=== PATIENT | female | born 1975 | race African-American/Black ===

== ENCOUNTER 2024-04-08 12:10 | Emergency (ER) | payer OTHER ==
[~2024-04-08] VITALS: Ht 167.6 cm; Wt 91.0 kg
[2024-04-08 12:19] VITALS: O2SAT 98
[2024-04-08 16:16] LABS: BASOPHILS % 0.7 % (0.0-2.0); EOSINOPHILS % 1.5 % (0.0-5.0); HEMATOCRIT. 41.8 % (36.0-48.0); HEMOGLOBIN. 13.4 g/dL (12.0-16.0); LYMPHOCYTES % 18.2 % (20.0-50.0); MEAN CORPUSCULAR HEMOGLOBIN 29.5 pg (28.0-32.0); MEAN CORPUSCULAR VOLUME 92.2 fL (81.0-99.0); MEAN PLATELET VOLUME 7.6 fl (7.4-10.4); MONOCYTES % 6.1 % (2.0-8.0); NEUTROPHILS % 73.5 % (40.0-76.0); PLATELET 530 x1000/uL (130-400); RED BLOOD CELL COUNT 4.53 mill/uL (4.2-5.4); RED CELL DISTRIBUTION WIDTH 14.5 % (11.6-14.6)
[2024-04-08 16:21] LABS: CHLORIDE 106 mEq/L (98-107); POTASSIUM 3.7 mEq/L (3.5-5.1); SODIUM 138 mEq/L (136-145)
[2024-04-08 16:22] LABS: CALCIUM 9.9 mg/dL (8.7-10.4); CARBON DIOXIDE 22 mEq/L (21-32)
[2024-04-08 16:25] LABS: HCG SCREEN NEGATIVE
[2024-04-08 16:27] LABS: GLUCOSE 105 mg/dL (70-105); UREA NITROGEN BLOOD 31 mg/dL (9-23)
[2024-04-08 16:29] LABS: ALANINE AMINOTRANSFERASE 18 IU/L (10-49); ALBUMIN 4.5 g/dL (3.2-4.8); ASPARTATE AMINOTRANSFERASE 14 IU/L (<34); BILIRUBIN TOTAL 0.4 mg/dL (0.1-1.0); PROTEIN TOTAL 8.7 g/dL (6.0-8.3)
[2024-04-08 17:31] LABS: TROPONIN I HIGH SENSITIVITY 10 ng/L (3.0-34)
[2024-04-08 18:47] LABS: CLARITY URINE CLOUDY (CLEAR); COLOR URINE YELLOW (YELLOW); GLUCOSE URINE NEGATIVE (NEGATIVE); KETONES URINE NEGATIVE (NEGATIVE); LEUKOCYTE ESTERASE URINE TRACE (NEGATIVE); NITRITE URINE NEGATIVE (NEGATIVE); OCCULT BLOOD URINE NEGATIVE (NEGATIVE); PH URINE 5.5 (4.5-8.0); PROTEIN URINE 1+ (NEGATIVE); SPECIFIC GRAVITY URINE 1.025 (1.005-1.030); UROBILINOGEN URINE 0.2 E.U./dL (0.2-1.0)
[2024-04-08 19:06] LABS: BACTERIA URINE 1+; RBC URINE 0-2 /hpf (0-2); SQUAMOUS EPITHELIAL CELL URINE 1+ /lpf (RARE/1+); WBC URINE 0-2 /hpf (0-2)
[2024-04-08 19:09] LABS: *AMPHETAMINES SCREEN URINE NEGATIVE (NEGATIVE); *BARBITURATES SCREEN URINE NEGATIVE (NEGATIVE); *BENZODIAZEPINES SCREEN URINE NEGATIVE (NEGATIVE); *COCAINE SCREEN URINE NEGATIVE (NEGATIVE)
[2024-04-08 19:10] LABS: CANNABINOID URINE SCREEN NEGATIVE (NEGATIVE); ECSTASY MDMA SCREEN URINE NEGATIVE (NEGATIVE); METHADONE URINE SCREEN NEGATIVE (NEGATIVE); OPIATES URINE SCREEN NEGATIVE (NEGATIVE); PHENCYCLIDINE URINE SCREEN NEGATIVE (NEGATIVE)
[2024-04-08 20:21] VITALS: TEMP 36.55848
[2024-04-08] MEDS: ACETAMINOPHEN 325MG TABLET PO ONE (20:25)
[2024-04-08] MEDS: ASPIRIN 81MG TABLET PO ONE (20:25)
[2024-04-08 20:48] LABS: TROPONIN I HIGH SENSITIVITY 10 ng/L (3.0-34)
[2024-04-08] MEDS ORDERED: IBUP-2029 MT (21:17)
[2024-04-08 23:00] VITALS: BP 153/87; PULSE 96; RESP 21; O2SAT 97
[2024-04-09] MEDS ORDERED: IOHEXOL-350 100 ML BOTTLE ONE (07:42)
[2024-04-11] MEDS ORDERED: LOSA100T33 MT (15:41)
== END 2024-04-08 23:11 | disposition home or self-care (01) ==
LOC: ER 13:01
DX: R07.89 Other chest pain (principal); E11.9 Type 2 diabetes mellitus without complications; I10 Essential (primary) hypertension
CPT/HCPCS: 80053; 80305; 81003; 81025; 84703; 83880; 83690; 85025; 84484; 36415; 71045; 93970; 93005; 99285; Q9967; Z7610 ×3

== ENCOUNTER 2025-03-19 07:25 | Inpatient (IN) | payer MEDICAID ==
[~2025-03-19] VITALS: Ht 167.6 cm; Wt 135.9 kg
[~2025-03-19 07:25] MED LIST: FURO40TA5 PO; METO25TA6 PO; NIFE-32 PO
[2025-03-19 08:25] LABS: BASOPHILS % 1.3 % (0.0-2.0); EOSINOPHILS % 3.7 % (0.0-5.0); HEMATOCRIT. 34.1 % (36.0-48.0); HEMOGLOBIN. 11.4 g/dL (12.0-16.0); LYMPHOCYTES % 19.5 % (20.0-50.0); MEAN PLATELET VOLUME 8.2 fl (7.4-10.4); MONOCYTES % 8.3 % (2.0-8.0); NEUTROPHILS % 67.2 % (40.0-76.0); PLATELET 343 x1000/uL (130-400); RED BLOOD CELL COUNT 3.79 mill/uL (4.2-5.4); RED CELL DISTRIBUTION WIDTH 15.1 % (11.6-14.6)
[2025-03-19] MEDS: MORPHINE SULFATE 4 MG/ML INJ (FOR IV/IM USE) IV ONE (08:34)
[2025-03-19 08:35] LABS: CREATININE 1.4 mg/dL (0.6-1.0); UREA NITROGEN BLOOD 17 mg/dL (9-23)
[2025-03-19 08:36] LABS: TROPONIN I HIGH SENSITIVITY 10 ng/L (3.0-34)
[2025-03-19] MEDS: HYDRALAZINE 20MG/ML VIAL IV NR (10:27)
[2025-03-19] MEDS: KETOROLAC 30MG/ML VIAL IV NR (10:28)
[2025-03-19] MEDS ORDERED: LORAZEPAM 0.5MG TABLET PO PRN (10:45)
[2025-03-19] MEDS ORDERED: ACETAMINOPHEN 325MG TABLET PO PRN (10:45)
[2025-03-19] MEDS ORDERED: DOCUSATE SODIUM 100MG CAPSULE PO PRN (10:45)
[2025-03-19 10:53] LABS: TROPONIN I HIGH SENSITIVITY 9 ng/L (3.0-34)
[2025-03-19] MEDS ORDERED: NALOXONE HCL 0.4MG/ML VIAL IV PRN (11:00)
[2025-03-19] MEDS ORDERED: KETOROLAC 15MG/ML VIAL IV PRN (11:15)
[2025-03-19] MEDS: CLONIDINE 0.1MG TABLET PO PRN (11:49)
[2025-03-19] MEDS: BLOOD SUGAR DIAGNOSTIC STRIP TEST SCH (12:20)
[2025-03-19 12:28] VITALS: BP 171/106; PULSE 106; RESP 18; TEMP 36.3624
[2025-03-19] MEDS ORDERED: DEXTROSE 50% WATER 50ML SYRINGE IV PRN (12:30)
[2025-03-19] MEDS: INSULIN LISPRO 100 UNITS/ML SUBCUT SCH (12:50)
[2025-03-19] MEDS: SODIUM CHLORIDE 0.9% 1,000 ML IV SCH (13:46)
[2025-03-19] MEDS ORDERED: LORAZEPAM 0.5MG TABLET PO SCH (15:45)
[2025-03-19 16:00] VITALS: BP 157/105; PULSE 103; RESP 17; TEMP 36.7; O2SAT 99
[2025-03-19 20:00] VITALS: BP_SYST 113; BP_SYST 157; BP_DIAS 72; BP_DIAS 91; PULSE 100; PULSE 101; RESP 18; TEMP 36.1; TEMP 36.8; O2SAT 100; O2SAT 99
[2025-03-19] MEDS: AMLODIPINE 5MG TABLET PO SCH (20:43)
[2025-03-19] MEDS: MORPHINE SULFATE 4 MG/ML INJ (FOR IV/IM USE) IV PRN (20:43)
[2025-03-19] MEDS: ENOXAPARIN 40MG/0.4ML SYR SUBCUT SCH (20:56)
[2025-03-20] VITALS: BP 113/72; PULSE 100; RESP 18; TEMP 36.1; O2SAT 100
[2025-03-20 04:00] VITALS: BP 139/93; PULSE 107; RESP 20; TEMP 36.5; O2SAT 98
[2025-03-20 04:28] LABS: TROPONIN I HIGH SENSITIVITY 10 ng/L (3.0-34)
[2025-03-20 08:00] VITALS: BP 159/92; PULSE 97; RESP 18; TEMP 36.5; O2SAT 96
[2025-03-20 16:00] VITALS: BP 138/89; PULSE 87; RESP 18; TEMP 36.5; O2SAT 100
[2025-03-20 17:39] LABS: CLARITY URINE CLOUDY (CLEAR); COLOR URINE YELLOW (YELLOW); GLUCOSE URINE TRACE (NEGATIVE); KETONES URINE TRACE (NEGATIVE); LEUKOCYTE ESTERASE URINE 1+ (NEGATIVE); NITRITE URINE NEGATIVE (NEGATIVE); OCCULT BLOOD URINE NEGATIVE (NEGATIVE); PH URINE 6.0 (4.5-8.0); PROTEIN URINE TRACE (NEGATIVE); SPECIFIC GRAVITY URINE 1.028 (1.005-1.030); UROBILINOGEN URINE 1.0 E.U./dL (0.2-1.0)
[2025-03-20 17:48] LABS: *AMPHETAMINES SCREEN URINE PRESUMPTIVE POSITIVE (NEGATIVE)
[2025-03-20 17:49] LABS: *BARBITURATES SCREEN URINE NEGATIVE (NEGATIVE); *BENZODIAZEPINES SCREEN URINE NEGATIVE (NEGATIVE); *COCAINE SCREEN URINE NEGATIVE (NEGATIVE); CANNABINOID URINE SCREEN NEGATIVE (NEGATIVE); ECSTASY MDMA SCREEN URINE CONF.TEST INDICATED (NEGATIVE); METHADONE URINE SCREEN NEGATIVE (NEGATIVE); OPIATES URINE SCREEN PRESUMPTIVE POSITIVE (NEGATIVE); PHENCYCLIDINE URINE SCREEN NEGATIVE (NEGATIVE)
[2025-03-20 18:22] LABS: BACTERIA URINE TRACE; RBC URINE NONE SEEN /hpf (0-2); SQUAMOUS EPITHELIAL CELL URINE 2+ /lpf (RARE/1+)
[2025-03-20 18:23] LABS: MUCUS URINE TRACE /lpf (< = 2+)
[2025-03-20 18:24] LABS: BASOPHILS % 0.9 % (0.0-2.0); EOSINOPHILS % 7.1 % (0.0-5.0); HEMATOCRIT. 33.9 % (36.0-48.0); HEMOGLOBIN. 11.0 g/dL (12.0-16.0); LYMPHOCYTES % 32.2 % (20.0-50.0); MEAN PLATELET VOLUME 8.3 fl (7.4-10.4); MONOCYTES % 10.7 % (2.0-8.0); NEUTROPHILS % 49.1 % (40.0-76.0); PLATELET 337 x1000/uL (130-400); RED BLOOD CELL COUNT 3.72 mill/uL (4.2-5.4); RED CELL DISTRIBUTION WIDTH 15.3 % (11.6-14.6)
[2025-03-20 18:34] LABS: INR 1.0
[2025-03-20 18:42] LABS: CREATININE 1.2 mg/dL (0.6-1.0); TRIGLYCERIDE 94 mg/dL (0-150)
[2025-03-20 18:43] LABS: LDL CHOLESTEROL 83 mg/dL (5-100); UREA NITROGEN BLOOD 19 mg/dL (9-23)
[2025-03-20 18:44] LABS: ASPARTATE AMINOTRANSFERASE 9 IU/L (<34); BILIRUBIN DIRECT 0.1 mg/dL (<=3.0); BILIRUBIN TOTAL 0.4 mg/dL (0.1-1.0)
[2025-03-20 18:45] LABS: PHOSPHORUS 3.4 mg/dL (2.5-4.9); PROTEIN TOTAL 6.6 g/dL (6.0-8.3)
[2025-03-20 18:51] LABS: T4 FREE 1.15 ng/dL (0.89-1.76)
[2025-03-20 20:00] VITALS: BP 166/83; PULSE 95; RESP 15; TEMP 36.5; O2SAT 99
[2025-03-20] MEDS: HYDRALAZINE 20MG/ML VIAL IV PRN (21:04)
[2025-03-20] MEDS: ONDANSETRON HCL 4MG/2ML INJ IV PRN (21:28)
[2025-03-21] VITALS (7 sets, daily range): BP systolic 128–175; BP diastolic 71–97; PULSE 98–111; RESP 16–22; TEMP 36.1–36.3; O2SAT 95–100
[2025-03-21 10:43] LABS: BASOPHILS % 0.7 % (0.0-2.0); EOSINOPHILS % 6.2 % (0.0-5.0); HEMATOCRIT. 32.9 % (36.0-48.0); HEMOGLOBIN. 10.9 g/dL (12.0-16.0); LYMPHOCYTES % 25.9 % (20.0-50.0); MEAN PLATELET VOLUME 8.0 fl (7.4-10.4); MONOCYTES % 9.6 % (2.0-8.0); NEUTROPHILS % 57.6 % (40.0-76.0); PLATELET 319 x1000/uL (130-400); RED BLOOD CELL COUNT 3.62 mill/uL (4.2-5.4); RED CELL DISTRIBUTION WIDTH 15.2 % (11.6-14.6)
[2025-03-21 10:54] LABS: CREATININE 1.1 mg/dL (0.6-1.0)
[2025-03-21 10:55] LABS: UREA NITROGEN BLOOD 20 mg/dL (9-23)
[2025-03-21 10:57] LABS: PHOSPHORUS 3.1 mg/dL (2.5-4.9)
[2025-03-22] VITALS (7 sets, daily range): BP systolic 126–156; BP diastolic 69–93; PULSE 71–125; RESP 18–19; TEMP 36.3–37.4; O2SAT 96–100
[2025-03-22] MEDS: IPRATROPIUM/ALBUTEROL 0.5-3(2.5)MG/3ML NEB HHN NR (04:19)
[2025-03-22] MEDS: HYDRALAZINE 20MG/ML VIAL IV ONE (11:13)
[2025-03-22] MEDS: ACETAMINOPHEN 325MG TABLET PO PRN (13:59)
[2025-03-23] VITALS: BP 131/82; PULSE 110; RESP 19; TEMP 37.4; O2SAT 98
[2025-03-23 04:00] VITALS: BP 169/101; PULSE 114; RESP 19; TEMP 36.9; O2SAT 100
[2025-03-23 08:00] VITALS: BP 165/93; PULSE 94; RESP 18; TEMP 35.6; O2SAT 98
[2025-03-23 12:00] VITALS: BP 156/84; PULSE 86; RESP 18; TEMP 35.7; O2SAT 99
[2025-03-23 13:06] VITALS: BP 156/84; PULSE 86; RESP 18; TEMP 96.2
== END 2025-03-23 13:25 | disposition home or self-care (01) | DRG 662 ==
LOC: ER 07:25 → 6WST 09:36 → EDBEDREQ 09:38 → EDBEDREQTM 09:38
PROVIDERS: ADMIT Internal Medicine; ATTEND Internal Medicine
DX: D57.00 Hb-SS disease with crisis, unspecified (principal); I27.20 Pulmonary hypertension, unspecified; I16.1 Hypertensive emergency; N17.9 Acute kidney failure, unspecified; T43.651A Poisoning by methamphetamines accidental (unintentional), initial encounter; K21.9 Gastro-esophageal reflux disease without esophagitis; N18.9 Chronic kidney disease, unspecified; C44.90 Unspecified malignant neoplasm of skin, unspecified; I87.2 Venous insufficiency (chronic) (peripheral); E11.22 Type 2 diabetes mellitus with diabetic chronic kidney disease; I12.9 Hypertensive chronic kidney disease with stage 1 through stage 4 chronic kidney disease, or unspecified chronic kidney disease; F15.90 Other stimulant use, unspecified, uncomplicated; F17.210 Nicotine dependence, cigarettes, uncomplicated; Z79.4 Long term (current) use of insulin; Z79.899 Other long term (current) drug therapy; Z83.2 Family history of diseases of the blood and blood-forming organs and certain disorders involving the immune mechanism; Z90.710 Acquired absence of both cervix and uterus; Z95.828 Presence of other vascular implants and grafts
CPT/HCPCS: 36415; 71045; 80048; 80061; 80076; 80305; 81003; 82550; 82962; 83735; 83880; 84100; 84439; 84443; 84484; 85025; 85379; 86850; 86900; 93005; 93970; 94070; 94640; 94664; 96374; 96375; 97161; 97165; 99285; A4606; J0360; J1650; J1885; J2270; J2405; J7030